=== PATIENT | female | born 1955 | race Caucasian/White ===

== ENCOUNTER 2017-08-19 08:55 | Day surgery (SDC) | payer BC, MEDICAID, OTHER ==
[2017-08-19] MEDS ORDERED: Sodium Chloride 0.9% 5 ML Syringe FLUSH PRN (09:00)
[2017-08-19] MEDS ORDERED: Sodium Chloride 0.9% 1,000 ML IV SCH (09:00)
[2017-08-19] MEDS ORDERED: Propofol 200 MG/20 ML SDV ONE ×2 (10:20→11:05)
[2017-08-19] MEDS ORDERED: Propofol 200 MG/20 ML SDV IV ONE (11:29)
--- NOTE | 2017-08-19 12:50 | PCM.PRNOTE ---
- Free Text/Narrative Note: PROCEDURE PERFORMED: Colonoscopy PRE-PROCEDURE DIAGNOSIS/INDICATION FOR PROCEDURE: Positive FIT CONSENT: Informed consent was obtained prior to the procedure after discussion of the risks (including pain, bleeding, infection, perforation, adverse reaction to anesthesia, cardiovascular event), benefits and alternatives and expected outcomes. The patient expressed understanding and wished to proceed. Verbal consent given and consent form signed. PROCEDURAL PAUSE: Completed SEDATION: Per anesthesia DESCRIPTION OF PROCEDURE: Patient was placed in the left lateral decubitus position. After adequate sedation and anesthetic was administered, a rectal exam was performed revealing no abnormalities. A lubricated Olympus Video Colonoscope was inserted into the rectum and air insufflation was performed. The colonoscope was advanced through the rectum, sigmoid, descending, and transverse colon without difficulties, though moderate stool burden noted. At the level of the ascending colon, increased stool burden noted along with significant difficulty advancing scope the last few centimeters despite several attempts at abdominal pressure, patient position changes, and scope withdrawal, and was unable to adequately document appendiceal orifice or ileocecal valve. The scope was withdrawn, giving 360-degree views of the colonic mucosa and retroflexion was performed in the rectum with the following findings noted: Ileocecal valve: Inadequate visualization Cecum: Inadequate visualization Ascending colon: Normal Hepatic flexure: Normal Transverse colon: Normal Splenic flexure: Normal Descending colon: Normal Sigmoid colon: Two 3mm polyps removed with cold forceps biopsy with subsequent complete removal and adequate hemostasis noted Rectum: Mild internal hemorrhoids The scope was straightened, air suction performed, and the scope withdrawn without complication. Preparation adequacy fair following significant water irrigation and suction. IMPRESSION: Colonoscopy performed revealing two polyps, pathology now pending, and internal hemorrhoids; Incomplete intubation of cecum PLAN: Follow-up in clinic to review pathology results and plan for repeat colonoscopy given lack of cecal intubation
== END 2017-08-19 13:50 | disposition home or self-care (01) ==
LOC: KA.SDS 08:55
PROVIDERS: ATTEND Family Medicine
DX: K63.5 Polyp of colon (principal); K64.8 Other hemorrhoids; I10 Essential (primary) hypertension; K21.9 Gastro-esophageal reflux disease without esophagitis; E78.5 Hyperlipidemia, unspecified; G47.30 Sleep apnea, unspecified; E11.9 Type 2 diabetes mellitus without complications; F32.9 Major depressive disorder, single episode, unspecified; Z79.4 Long term (current) use of insulin; E89.0 Postprocedural hypothyroidism; Z88.0 Allergy status to penicillin; Z88.8 Allergy status to other drugs, medicaments and biological substances; Z98.890 Other specified postprocedural states; Z79.899 Other long term (current) drug therapy
CPT/HCPCS: 82962; J2704; J7030

== ENCOUNTER 2018-02-03 07:47 | Day surgery (SDC) | payer BC ==
[~2018-02-03 07:47] MED LIST: EPINEPHrine 1:10,000 1 MG/10 ML Syringe ONE
[2018-02-03] MEDS ORDERED: Sodium Chloride 0.9% 5 ML Syringe FLUSH PRN (08:00)
[2018-02-03] MEDS ORDERED: Sodium Chloride 0.9% 1,000 ML IV SCH (08:00)
[2018-02-03] MEDS ORDERED: Midazolam 1 MG/ML 2 ML SDV ONE (08:23)
[2018-02-03] MEDS ORDERED: Propofol 200 MG/20 ML SDV ONE ×3 (08:24→09:29)
[2018-02-03] MEDS ORDERED: Midazolam 1 MG/ML 2 ML SDV IV ONE (09:22)
[2018-02-03] MEDS ORDERED: Ketorolac 30 MG/ML SDV IVPUSH ONE (09:22)
[2018-02-03] MEDS ORDERED: Propofol 200 MG/20 ML SDV IV ONE (09:22)
[2018-02-03] MEDS ORDERED: Ketorolac 30 MG/ML SDV ONE (09:53)
[2018-02-03] MEDS ORDERED: Lactated Ringers 1,000 ML IV SCH (11:00)
--- NOTE | 2018-02-03 11:55 | PCM.PRNOTE ---
- Free Text/Narrative Note: PROCEDURE PERFORMED: Colonoscopy with polypectomy PRE-PROCEDURE DIAGNOSIS/INDICATION FOR PROCEDURE: +FIT, prior colonoscopy with poor prep and inability to reach cecum CONSENT: Informed consent was obtained prior to the procedure after discussion of the risks (including pain, bleeding, infection, perforation, missed polyps, inability to completely remove polyps necessitating repeat colonoscopy, inability to reach cecum, adverse reaction to anesthesia, cardiovascular event) , benefits and alternatives and expected outcomes. The patient expressed understanding and wished to proceed. Verbal consent given and consent form signed. PROCEDURAL PAUSE: Completed SEDATION: Per anesthesia DESCRIPTION OF PROCEDURE: Patient was placed in the left lateral decubitus position. After adequate sedation and anesthetic was administered, a rectal exam was performed revealing no abnormalities. A lubricated Olympus Video Colonoscope was inserted into the rectum and water irrigation and air insufflation was performed. The colonoscope was advanced through the rectum, sigmoid, descending, transverse, and ascending colon without difficulties though noted to be torturous. The cecum was reached and the ileocecal valve as well as the appendiceal orifice were identified and pictorially documented. After adequate visualization of the cecum, the scope was withdrawn, giving 360-degree views of the colonic mucosa and retroflexion was performed in the rectum with the following findings noted: Ileocecal valve: Normal Cecum: Normal Ascending colon: Normal Hepatic flexure: Normal Transverse colon: Normal Splenic flexure: Normal Descending colon: Normal Sigmoid colon: One 3mm polyp at 30cm removed with cold forceps; Two 5mm polyps removed with hot snare Rectum: Internal hemorrhoids Each polyp site was noted to have complete polyp removal and with adequate hemostasis. The scope was straightened, air suction performed, and the scope withdrawn without complication. Preparation adequacy fair. IMPRESSION: Colonoscopy performed revealing three polyps, pathology now pending PLAN: Will contact the patient when pathology results received with recommendation for repeat colonoscopy.
[2018-02-03 13:46] VITALS: BP 121/65
== END 2018-02-03 12:40 | disposition home or self-care (01) ==
LOC: KA.SDS 07:47
PROVIDERS: ATTEND Family Medicine
DX: R19.5 Other fecal abnormalities (principal); K63.5 Polyp of colon; K64.8 Other hemorrhoids; I10 Essential (primary) hypertension; E03.9 Hypothyroidism, unspecified; E11.9 Type 2 diabetes mellitus without complications; F17.210 Nicotine dependence, cigarettes, uncomplicated; K21.9 Gastro-esophageal reflux disease without esophagitis; Z68.38 Body mass index [BMI] 38.0-38.9, adult; G47.30 Sleep apnea, unspecified; E78.5 Hyperlipidemia, unspecified; Z79.84 Long term (current) use of oral hypoglycemic drugs; Z79.82 Long term (current) use of aspirin; Z79.899 Other long term (current) drug therapy; Z88.0 Allergy status to penicillin; Z88.1 Allergy status to other antibiotic agents
CPT/HCPCS: 82962; J1885; J2250; J2704; J7120

== ENCOUNTER 2019-01-19 08:01 | Day surgery (SDC) | payer MEDICARE, OTHER ==
[~2019-01-19 08:01] MED LIST changes: -EPINEPHrine 1:10,000 1 MG/10 ML Syringe ONE; +Midazolam 1 MG/ML 2 ML SDV ONE; +Propofol 200 MG/20 ML SDV ONE; +Sodium Chloride 0.9% 1,000 ML IV SCH; +Sodium Chloride 0.9% 10 ML Syringe FLUSH PRN
[2019-01-19] MEDS ORDERED: Midazolam 1 MG/ML 2 ML SDV IV ONE (08:54)
[2019-01-19] MEDS ORDERED: Propofol 200 MG/20 ML SDV IV ONE (08:54)
--- NOTE | 2019-01-19 09:28 | PCM.PRNOTE ---
- Free Text/Narrative Note: PROCEDURE PERFORMED: Esophagogastroduodenoscopy with biopsy PRE-PROCEDURE DIAGNOSIS/INDICATION FOR PROCEDURE: Iron deficiency anemia, reflux partially responsive to PPI CONSENT: Informed consent was obtained prior to the procedure after discussion of the risks (including pain, bleeding, infection, perforation, need for further procedures, adverse reaction to anesthesia, cardiovascular event), benefits and alternatives and expected outcomes. Verbal consent given and consent form signed. PROCEDURAL PAUSE: Completed SEDATION: Per anesthesia DESCRIPTION OF PROCEDURE: Patient was brought back to the operating room and placed in a left lateral decubitus position. Bite block placed. After adequate sedation and anesthetic was administered, endoscope was inserted into the patient's mouth and was passed easily through the esophagus and stomach into the duodenum without difficulty. Examined duodenum normal appearing. Pylorus normal appearing. Stomach, including viewing in retroflexion, normal appearing aside from mild gastritis; biopsies for pathologic examination and H.pylori testing obtained. Gastroesophageal junction at 41 cm from the incisors. No hiatal hernia. Esophagus normal appearing. The scope was removed without difficulty. Patient tolerated the procedure well. No complications. IMPRESSION: Esophagogastroduodenoscopy performed revealing mild gastritis, pathology now pending on stomach biopsy. PLAN: Will contact the patient when pathology results received. Discussed appropriate administration of antacid medication. Follow-up with PCP for further evaluation of iron deficiency anemia given lack of etiology noted on EGD.
== END 2019-01-19 10:25 | disposition home or self-care (01) ==
LOC: KA.SDS 08:01
PROVIDERS: ATTEND Family Medicine
DX: K21.9 Gastro-esophageal reflux disease without esophagitis (principal); D50.9 Iron deficiency anemia, unspecified; K29.71 Gastritis, unspecified, with bleeding; E11.9 Type 2 diabetes mellitus without complications; I10 Essential (primary) hypertension; I25.2 Old myocardial infarction; I87.2 Venous insufficiency (chronic) (peripheral); E78.5 Hyperlipidemia, unspecified; E03.9 Hypothyroidism, unspecified; E66.9 Obesity, unspecified; F32.9 Major depressive disorder, single episode, unspecified; F17.210 Nicotine dependence, cigarettes, uncomplicated; G47.33 Obstructive sleep apnea (adult) (pediatric); M17.10 Unilateral primary osteoarthritis, unspecified knee; Z68.39 Body mass index [BMI] 39.0-39.9, adult; Z88.0 Allergy status to penicillin; Z88.1 Allergy status to other antibiotic agents; Z79.84 Long term (current) use of oral hypoglycemic drugs; Z79.82 Long term (current) use of aspirin; Z79.899 Other long term (current) drug therapy
CPT/HCPCS: 00731; 82962; J2250; J2704; J7030

== ENCOUNTER → 2022-03-12 | Day surgery (SDC) | payer MEDICARE, OTHER ==
[~2022-03-12] MED LIST changes: +Glycopyrrolate 0.2 MG/ML SDV IVPUSH ONE; +Midazolam 1 MG/ML 2 ML SDV IV ONE; -Midazolam 1 MG/ML 2 ML SDV ONE; +Propofol 200 MG/20 ML SDV IV ONE; -Propofol 200 MG/20 ML SDV ONE; -Sodium Chloride 0.9% 1,000 ML IV SCH; -Sodium Chloride 0.9% 10 ML Syringe FLUSH PRN
== END ==
LOC: KA.SDS 06:00
PROVIDERS: ATTEND Family Medicine
DX: K21.9 Gastro-esophageal reflux disease without esophagitis (principal); K44.9 Diaphragmatic hernia without obstruction or gangrene; J45.909 Unspecified asthma, uncomplicated; I10 Essential (primary) hypertension; E78.5 Hyperlipidemia, unspecified; G47.33 Obstructive sleep apnea (adult) (pediatric); E07.9 Disorder of thyroid, unspecified; F32.A Depression, unspecified; E11.9 Type 2 diabetes mellitus without complications; Z79.899 Other long term (current) drug therapy; Z79.82 Long term (current) use of aspirin; Z79.84 Long term (current) use of oral hypoglycemic drugs; Z88.0 Allergy status to penicillin; Z88.1 Allergy status to other antibiotic agents; Z98.890 Other specified postprocedural states
CPT/HCPCS: 00731; J2250; J2704; J3490

== ENCOUNTER 2023-01-11 15:28 | Emergency (ER) | payer MEDICARE ==
[2023-01-11 15:39] LABS: BASOPHILS ABSOLUTE AUTO 0.03 10^3/uL (0.00-0.10); BASOPHILS PERCENT AUTO 0.5 % (0.0-1.0); EOSINOPHILS ABSOLUTE AUTO 0.24 10^3/uL (0.10-0.30); EOSINOPHILS PERCENT AUTO 3.7 % (1.0-3.0); HEMATOCRIT 44.5 % (37.0-47.0); HEMOGLOBIN 13.7 g/dL (12.0-16.0); IMMATURE GRAN ABSOLUTE AUTO 0.01 10^3/uL (0.00-0.50); IMMATURE GRAN PERCENT AUTO 0.2 % (0.0-5.0); LYMPHOCYTES ABSOLUTE AUTO 1.21 10^3/uL (1.00-4.00); LYMPHOCYTES PERCENT AUTO 18.7 % (20.0-40.0); MEAN CORPUSCULAR HGB CONC 30.8 g/dL (32.0-36.0); MEAN CORPUSCULAR VOLUME 90.8 fL (82.0-92.0); MEAN PLATELET VOLUME 8.6 fL (7.4-10.4); MONOCYTES ABSOLUTE AUTO 0.46 10^3/uL (0.10-0.80); MONOCYTES PERCENT AUTO 7.1 % (2.0-8.0); NEUTROPHILS ABSOLUTE AUTO 4.51 10^3/uL (2.50-7.00); NEUTROPHILS PERCENT AUTO 69.8 % (50.0-70.0); PLATELET COUNT,PLT 324 10^3/uL (150-400); RED CELL DISTRIBUTION WIDTH 13.6 % (11.5-14.5); WHITE BLOOD CELL COUNT,WBC 6.46 10^3/uL (5.00-10.00)
[2023-01-11 15:53] LABS: ANION GAP 15.8 mmol/L (5-15); CALCIUM 9.2 mg/dL (8.7-10.3); CARBON DIOXIDE,CO2 24.3 mmol/L (21.0-32.0); CREATININE 0.91 mg/dL (0.51-1.17); EST CRCL DRUG DOSING (CG) 52.5 mL/min; POTASSIUM,K 4.1 mmol/L (3.5-5.1)
== END 2023-01-11 16:58 | disposition home or self-care (01) ==
LOC: KA.ED 15:28
DX: L03.113 Cellulitis of right upper limb (principal); E78.00 Pure hypercholesterolemia, unspecified; K21.9 Gastro-esophageal reflux disease without esophagitis; G47.30 Sleep apnea, unspecified; I10 Essential (primary) hypertension; I25.2 Old myocardial infarction; E11.9 Type 2 diabetes mellitus without complications; E03.9 Hypothyroidism, unspecified; E66.9 Obesity, unspecified; F17.210 Nicotine dependence, cigarettes, uncomplicated; Z68.38 Body mass index [BMI] 38.0-38.9, adult; Z88.0 Allergy status to penicillin; Z88.1 Allergy status to other antibiotic agents; Z79.82 Long term (current) use of aspirin; Z79.84 Long term (current) use of oral hypoglycemic drugs; Z79.899 Other long term (current) drug therapy
CPT/HCPCS: 36415; 80048; 83605; 85025; 96365; 99283-25; 99284; J3490